=== PATIENT | female | born 1990 | race Caucasian/White ===

== ENCOUNTER → 2017-01-09 | Outpatient (CLI) | payer SELFPAY ==
--- NOTE | 2017-01-09 11:57 | US ---
EXAMINATION TYPE: US OB <=14 wks transvag DATE OF EXAM: 01/09/2017 COMPARISON: NONE CLINICAL HISTORY: O46.91 Antepartum hemorrhage first trimester. EXAM PERFORMED: Transvaginal (TV) and Transabdominal (TA), endovaginal scanning performed for better evaluation of the . Grayscale, color Doppler imaging performed of the ovaries EXAM MEASUREMENTS: GESTATIONAL AGE / DATING Physician Established: Not established yet Dates by LMP: Unknown Dates by First Scan: (5 weeks/6 days) at dr office EDC: not given Dates by Current Scan for: (5 weeks/6 days) EDC: 09/05/2017 MATERNAL ANATOMY Uterus: 7.8 x 3.9 x 4.8 cm Right Ovary: 2.0 x 1.5 x 1.7 cm Left Ovary: 2.0 x 2.0 x 2.5 cm Post CDS / Adnexa: rt ov cyst 1.4 x 0.8 x 1.1 cm Presence of free fluid: no Presence of corpus luteal cyst: rt ov cyst 1.4 x 0.8 x 1.1 cm Presence of subchorionic bleed: no GESTATION / SURVEY CRL: 0.3 (5 weeks/4 days) MSD: 0.8 ( weeks/ days) Yolk Sac (normal less than 6mm): 0.3 Heart Rate: not seen bpm Rhythm: not seen IUP: within uterus ho heart beat seen Date of LMP: unknown Beta HcG (if available): NA IMPRESSION: Findings may represent early gestation, heart rate was not detected although pole was noted. Co nsider short interval follow-up.
== END | disposition home or self-care (01) ==
LOC: RADUSWWP 11:07
PROVIDERS: ATTEND Obstetrics & Gynecology
DX: O46.91 Antepartum hemorrhage, unspecified, first trimester (principal); Z3A.00 Weeks of gestation of pregnancy not specified
CPT/HCPCS: 76801; 76817

== ENCOUNTER 2018-09-30 00:07 | Outpatient (CLI) | payer BC ==
[2018-09-30 00:40] VITALS: BP 124/82; PULSE 87; RESP 16; TEMP 97.6
--- NOTE | 2018-10-04 10:30 | P.MSEPDOC ---
Presenting Problems - Arrival Data Date of Arrival on Unit: 09/30/18 Time of Arrival on Unit: 00:08 Mode of Transport: Ambulatory - Complaint OB-Reason for Admission/Chief Complaint: Possible Onset of Labor, Decreased Movement Comment: Patient has had decreased movement this evening, states that contractions started around 1730 this evening, states they are approximately 7 minutes apart. Medical History - Information : 3 Para: 1 Term: 1 : 0 Abortions: Spontaneous or Elective: 1 Number of Living Children: 2 - Gestational Age Gestational Age by BRANDI (wks/days): 39 Weeks and 0 Days Review of Systems - Review of Systems Constitutional: No problems Breast: No problems ENT: No problems Cardiovascular: No problems Respiratory: No problems Gastrointestinal: No problems Genitourinary: No problems Musculoskeletal: No problems Neurological: No problems Skin: No problems Vital Signs - Temperature Temperature: 97.6 F Temperature Source: Axillary - Pulse Pulse Oximetery Pulse Rate: 87 Pulse Assessment Method: Automatic Cuff - Respirations Respiratory Rate: 16 Oxygen Delivery Method: Room Air - Blood Pressure Sitting Blood Pressure: 124/82 Blood Pressure Mean: 96 Blood Pressure Source: Automatic Cuff Medical Screen Scoring (Pre) - Cervical Exam Dilation: 1-3 cm = 1 Membranes: Intact - Uterine Contractions Frequency: > or = 36 weeks =2 Duration: > 40 seconds = 2 Intensity: N/A - Maternal Vital Signs Maternal Temperature: N/A Maternal Blood Pressure: N/A Signs of Preeclampsia: N/A Maternal Respirations: N/A - Pain Assessment Pain Location and Character: Generalized, Abdomen Pain Scale Used: Numeric (1 - 10) Pain Intensity: 4 Pain Management Goal: 4 - Maternal Trauma Maternal Trauma: N/A - Assessment Baseline FHR: 140 Heart Rate - NICHD Category: Category I (Normal) = 0 NST: Reactive Position: N/A Station: N/A - Total Score Total Score (Pre): 5 - Level of Risk Level of Risk: Low (0-5) Physician Notification (Pre) - Physician Notified Physician Notified Date: 09/30/18 Physician Notified Time: 01:24 Physician/Practitioner Notifed:: Dr. Hoff New Order Received: Yes - Notification Comment Comment: Orders given to monitor patient for another hour and recheck cervix, if cervical change is made at that time call physician with report, if cervix remains unchanged at that time orders given to discharge patient home with instructions. Disposition - Disposition OB Disposition: Discharge to home, Written follow up instructions reviewed Discharge Date: 09/30/18 Discharge Time: 02:23 I agree with the RN Medical Screening Exam: Yes Risk & Benefit of care provided described in d/c instruction: Yes Diagnosis: DECREASED MOVEMENTS, THIRD TRIMESTER, FETUS 1
== END 2018-09-30 02:23 | disposition home or self-care (01) ==
LOC: FBPOP 00:07
PROVIDERS: ATTEND Obstetrics & Gynecology
DX: O36.8131 Decreased fetal movements, third trimester, fetus 1 (principal); Z3A.39 39 weeks gestation of pregnancy
CPT/HCPCS: 59025; 99213

== ENCOUNTER 2018-09-30 04:49 | Inpatient (IN) | payer BC ==
[2018-09-30] MEDS ORDERED: BUTORPHANOL 1 MG/ML 1 ML VIAL IV PRN (05:17)
[2018-09-30] MEDS ORDERED: TERBUTALINE 1 MG/ML VIAL SQ PRN (05:30)
[2018-09-30] MEDS ORDERED: CARBOPROST TROMETHAMINE 250 MCG/ML 1 ML AMP IM PRN (05:30)
[2018-09-30] MEDS ORDERED: OXYTOCIN 10 UNIT/ML 1 ML VIAL IM PRN (05:30)
[2018-09-30] MEDS ORDERED: LIDOCAINE 0.5% (PF) 5 MG/ML (50 ML SDV) SQ PRN (05:30)
[2018-09-30] MEDS ORDERED: METHYLERGONOVINE 0.2 MG/ML 1 ML AMP IM PRN (05:30)
[2018-09-30 06:05] VITALS: BMI 34.5
[2018-09-30] MEDS: LACTATED RINGERS 1,000 ML IV SCH ×4 (06:08→23:20)
[2018-09-30 06:25] LABS: Basophils % (A) 0 %; Eosinophils # (A) 0.2 k/uL (0-0.7); Eosinophils % (A) 1 %; HCT 34.6 % (34.0-46.0); HGB 11.4 gm/dL (11.4-16.0); Lymphocytes # (A) 1.5 k/uL (1.0-4.8); Lymphocytes % (A) 11 %; MCHC 32.9 g/dL (31.0-37.0); Mean Platelet Volume 7.4; Monocytes # (A) 0.8 k/uL (0-1.0); Monocytes % (A) 6 %; Neutrophils # (A) 11.5 k/uL (1.3-7.7); Neutrophils % (A) 81 %; Platelet Count 242 k/uL (150-450); RBC 3.93 m/uL (3.80-5.40); RDW 14.7 % (11.5-15.5); WBC 14.2 k/uL (3.8-10.6)
--- NOTE | 2018-09-30 11:44 | P.HPOB ---
History of Present Illness H&P Date: 09/30/18 Chief Complaint: 39-0/7 weeks, labor The patient is a 27-year-old 3 para 1011 admitted at 39-0/7 weeks as established by last menstrual period and confirmed by second trimester ultrasound. She is admitted in early labor having made cervical change in triage over the course of 2 separate visits and with regular contractions. Her has been uncomplicated. She is Rh- and received RhoGAM at 28 weeks. Group B strep status is negative. She carries a history of a previous shoulder dystocia and has a scheduled induction for later this week. Third trimester ultrasound during this demonstrated growth at the 96th percentile leading to the previously mentioned plan. Obstetrical history: 3 para 1011 with 1 term vaginal delivery that did present with shoulder dystocia at 41 weeks. She additionally had an early miscarriage not requiring D&C. Current statistics are listed in history of present illness. EDC of 10/07/2018 was established by last menstrual period and confirmed by second trimester ultrasound. Laboratory workup demonstrates a blood type of B- with a negative antibody screen. Rubella status is immune. Early Glucola was within normal limits while second trimester Glucola was elevated but followed by a normal three-hour glucose tolerance test. Group B strep status is negative. Crisis Intervention Specialist history: Unremarkable with no history of any infections to include STDs. Review of Systems Review of systems is confined to history of present illness. Past Medical History Past Medical History: No Reported History History of Any Multi-Drug Resistant Organisms: None Reported Additional Past Surgical History / Comment(s): [place] tooth extraction Past Anesthesia/Blood Transfusion Reactions: No Reported Reaction Past Psychological History: Anxiety, Depression Smoking Status: Never smoker Past Alcohol Use History: None Reported Past Drug Use History: None Reported - Past Family History Mother Family Medical History: No Reported History Medications and Allergies Home Medications Medication Instructions Recorded Confirmed Type Ferrous Sulfate [Iron] 325 mg PO DAILY 09/30/18 09/30/18 History No.77/Iron Asp Gly/FA 1 each PO DAILY 09/30/18 09/30/18 History [Prenate Star Tablet] Allergies Allergy/AdvReac Type Severity Reaction Status Date / Time No Known Allergies Allergy Verified 09/30/18 05:01 Exam Vital Signs Temp Pulse Resp BP 09/30/18 06:01 98.4 F 99 16 117/70 09/30/18 05:17 98.4 F 99 16 117/70 Intake and Output 09/29/18 09/30/18 09/30/18 22:59 06:59 14:59 Other: # Voids 1 Weight 85.729 kg In general, this is a well-developed, well-nourished white female in no acute distress. Her heart has a regular rhythm and rate without murmur. Her lungs are clear to auscultation bilaterally in all stallings. Her abdomen is gravid, nondistended, has normal active bowel sounds, is soft, nontender, and without any palpable masses aside from uterine fundus. Her extremities are without any cyanosis, clubbing, or significant edema and are nontender to palpation bilaterally. Digital cervical examination on straights her cervix to be 4+ centimeters dilated, 60% effaced, the vertex in presentation at -2 station. Artificial rupture of membranes is carried out demonstrating clear fluid. Results Result Diagrams: 09/30/18 06:10 Abnormal Lab Results - Last 24 Hours (Table) 09/30/18 Range/Units 06:10 WBC 14.2 H (3.8-10.6) k/uL Neutrophils # 11.5 H (1.3-7.7) k/uL Assessment and Plan (1) Active labor at term Current Visit: Yes Status: Acute Code(s): [id number] - SNOMED Code(s): 00079211 Plan: The patient is admitted for active management of labor. She has undergone artificial rupture of membranes and will continue to have close maternal and surveillance along with expectant management. She is in the process of myrick ving an epidural catheter placed at this time.
[2018-09-30] MEDS ORDERED: fentaNYL (PF) 50 MCG/ML 5 ML AMP ONE (11:45)
[2018-09-30] MEDS ORDERED: ROPIVACAINE 5MG/ML 20ML VIAL ONE (11:45)
[2018-09-30] MEDS ORDERED: SODIUM CHLORIDE 0.9% 100 ML BAG ONE (11:45)
[2018-09-30] MEDS ORDERED: ePHEDrine SULFATE/0.9% NACL/PF 50 MG/5 ML SYRINGE IV ONE ×2 (11:45→21:14)
[2018-09-30] MEDS ORDERED: OXYTOCIN 30 UNITS/500 ML NS 30 UNIT in SALINE 1 500ML.BAG IV SCH (14:30)
[2018-09-30] MEDS ORDERED: PENICILLIN G POTASSIUM 5,000,000 UNIT in DEXTROSE 5% IN WATER 100 ML IVPB STA ×2 (18:39)
[2018-09-30] MEDS ORDERED: CITRIC ACID-SODIUM CITRATE 15 ML CUP PO ONE (19:41)
[2018-09-30] MEDS ORDERED: ceFAZolin IN SWFI 2 GM/20 ML SYRINGE IVP ONE (19:41)
[2018-09-30] MEDS ORDERED: ONDANSETRON 4 MG/2 ML VIAL ONE (21:14)
[2018-09-30] MEDS ORDERED: OXYTOCIN 10 UNIT/ML 1 ML VIAL ONE (21:14)
[2018-09-30] MEDS ORDERED: NALBUPHINE 10 MG/ML (1 ML AMP) ONE (21:14)
[2018-09-30] MEDS ORDERED: MORPHINE SULFATE (PF) 0.3 MG/0.3 ML SYR ONE (21:14)
[2018-09-30] MEDS ORDERED: KETOROLAC 30 MG/ML 1 ML VIAL ONE (21:14)
[2018-09-30] MEDS ORDERED: PHENYLEPHRINE-0.9% NACL SYG 1 MG/10 ML SYRINGE ONE (21:14)
[2018-09-30] MEDS ORDERED: DEXAMETHASONE SOD PHOS (MDV) 100 MG/10 ML VIAL ONE (21:14)
[2018-09-30] MEDS ORDERED: HYDROcodone/APAP 7.5-325MG 1 EACH TAB PO PRN (22:09)
[2018-09-30] MEDS ORDERED: NALOXONE 0.4 MG/ML 1 ML VIAL IV PRN (22:09)
[2018-09-30] MEDS ORDERED: ZOLPIDEM 5 MG TAB PO PRN (22:09)
[2018-09-30] MEDS ORDERED: METOCLOPRAMIDE 5 MG/ML 2 ML VIAL IVP PRN (22:09)
[2018-09-30] MEDS ORDERED: diphenhydrAMINE 50 MG CAP PO PRN (22:09)
[2018-09-30] MEDS ORDERED: SIMETHICONE 80 MG CHEWABLE PO PRN (22:09)
[2018-09-30] MEDS ORDERED: diphenhydrAMINE 50 MG/ML 1 ML VIAL IVP PRN ×2 (22:09)
[2018-09-30] MEDS ORDERED: ACETAMINOPHEN TAB 325 MG TAB PO PRN (22:09)
[2018-09-30] MEDS ORDERED: ONDANSETRON 4 MG/2 ML VIAL IVP PRN (22:09)
[2018-09-30] MEDS ORDERED: LANOLIN CREAM 5 GM TUBE TOPICAL PRN (22:09)
[2018-09-30] MEDS ORDERED: diphenhydrAMINE 25 MG CAP PO PRN (22:09)
[2018-09-30] MEDS ORDERED: OXYTOCIN 20 UNITS/1000 ML NS 1,000 ML IV SCH (22:15)
--- NOTE | 2018-09-30 22:19 | P.OP ---
Date of Procedure: 09/30/18 Preoperative Diagnosis: #1. 39-0/7 weeks #2. Suspected macrosomia #3. Arrest of dilation and descent #4. Maternal intrapartum fever #5. Suspected malposition Postoperative Diagnosis: Same plus #6. Left occiput transverse position Procedure(s) Performed: #1. Primary low-transverse section Anesthesia: spinal Surgeon: Edison Hoff Safety Patrol Officer #1: Sheridan Carrasco Estimated Blood Loss (ml): 500 IV fluids (ml): 1,200 Urine output (ml): 400 Pathology: none sent Condition: stable Disposition: floor Operative Findings: Preoperatively, the patient had made very slow progress from initial presentation at 4 cm to approximately 6-7 cm with the head not well applied to the cervix. She remained at that dilation for approximately 4-5 hours and had an elevating baseline which prompted antibiotic prophylaxis after which time she then spiked a fever greater than 101. She began to have subtle late decelerations along with the tachycardia. Given the remotene ss from delivery as well as the suspected macrosomia and malposition, the decision was made to proceed with primary low-transverse section. She was taken to the operating room where she was delivered of a viable 9 lbs. 2 oz. baby girl with Apgars of 8 at 1 minute and 9 at 5 minutes delivered in the left occiput transverse position. The placenta was delivered manually, intact, and grossly normal with a grossly normal three-vessel cord. The uterus, tubes, and ovaries were entirely normal to inspection. Description of Procedure: The patient was prepped and draped in usual fashion after spinal anesthesia was administered by the anesthesiologist. A Pfannenstiel incision was made and extended into the abdominal cavity without difficulty. The bladder peritoneum was noted to be fairly high and was elevated, incised, and reflected distally. A 2 cm incision was made in the transverse plane of the lower uterine segment to enter the uterus at which time clear fluid was further noted. Incision was extended in both directions using the bandage scissors. The head was delivered up and through the incision in the left occiput transverse position. The nose and mouth were thoroughly suctioned and the remainder of the delivered onto the field where the cord was doubly clamped, cut, and the passed resuscitative measures with weight and Apgars as noted above. cord blood was collected as the patient is Rh-. A segment of cord was doubly clamped, cut, and set aside should cord gases become necessary. The placenta was delivered manually and intact as noted above. The uterus was exteriorized and the interior cavity of the uterus was swept of any remaining placental or membranous fragments. The margins of the incision were grasped with Viera clamps and the incision was closed in 2 layers. The first layer was a running locking stitch of 0 chromic catgut from margin to margin followed by a running imbricating layer of 0 chromic catgut from margin to margin. The posterior cul-de-sac was suctioned with a guard as well as a laparotomy sponge and the uterine and ovarian findings were entirely normal as noted above. The uterus was replaced within the abdominal cavity and the gutters swept of any remaining blood, fluid, or clot. The incision was reexamined and several points of bleeding were noted across the incision, each made hemostatic with a [id number] stitch of 0 chromic catgut. Any small points of bleeding were made hemostatic with the Bovie. Once hemostasis was assured, the parietal lissette toneum was loosely reapproximated and layer of muscles examined and found to be hemostatic. The fascia was closed with 2 running stitches of 0 Vicryl proceeding from the lateral margins to the midpoint. The subcutaneous tissues were irrigated, made hemostatic with the Bovie, and reapproximated with a running stitch of 30 plain catgut. The skin was reapproximated with a running subcuticular stitch of 4-0 Vicryl from margin to margin followed by half-inch Steri-Strips placed with Mastisol. Estimated blood loss for the case was approximately 500 mL. There were no complications. All sponge, instrument, and needle counts were correct. Both mother and are resting comfortably in recovery.
[2018-10-01] MEDS: KETOROLAC 30 MG/ML 1 ML VIAL IVP PRN ×3 (03:53→18:09)
[2018-10-01] MEDS: LACTATED RINGERS 1,000 ML IV SCH ×2 (06:19→19:36)
--- NOTE | 2018-10-01 06:38 | P.PN ---
Progress Note - Text Progress Note Date: 10/01/18 post duramorph spinal rounds patient POD 1 s/p denies any headaches or LE weakness vitals within normal limits spinal without complication primary team to manage
[2018-10-01 06:46] LABS: Basophils % (A) 0 %; Eosinophils # (A) 0.1 k/uL (0-0.7); Eosinophils % (A) 0 %; HCT 31.5 % (34.0-46.0); HGB 10.1 gm/dL (11.4-16.0); Hypochromasia Slight; Lymphocytes % (A) 5 %; MCH 28.9 pg (25.0-35.0); MCHC 32.2 g/dL (31.0-37.0); MCV 89.7 fL (80.0-100.0); Mean Platelet Volume 7.8; Monocytes # (A) 0.6 k/uL (0-1.0); Monocytes % (A) 3 %; Neutrophils # (A) 19.9 k/uL (1.3-7.7); Neutrophils % (A) 92 %; Platelet Count 259 k/uL (150-450); RBC 3.51 m/uL (3.80-5.40); RDW 14.5 % (11.5-15.5); WBC 21.7 k/uL (3.8-10.6)
[2018-10-01] MEDS: SENNOSIDES-DOCUSATE SODIUM 1 EACH TAB PO SCH ×2 (08:00→19:36)
[2018-10-01] MEDS: HYDROcodone/APAP 5-325MG 1 EACH TAB PO PRN ×2 (08:06→18:16)
--- NOTE | 2018-10-01 10:06 | P.PN ---
Subjective Progress Note Date: 10/01/18 Principal diagnosis: Postoperative day #1 Slept well. Tired. Positive flatus. Objective - Vital Signs Vital signs: Vital Signs Temp 97.6 F 10/01/18 08:00 Pulse 78 10/01/18 08:00 Resp 15 10/01/18 08:00 BP 108/66 10/01/18 08:00 Pulse Ox 98 10/01/18 08:00 Intake & Output 09/30/18 10/01/18 10/01/18 18:59 06:59 18:59 Intake Total 1000 Output Total 600 2600 Balance -600 -1600 Intake: Intake, IV Titration 1000 Amount Oxytocin 20 Units/1000 ml 1000 Ns 1,000 ml @ Per Protocol IV .Q0M MIGDALIA Rx#: [id number] Output: Urine 600 2600 Uretheral ([place]) 500 - Constitutional General appearance: Present: average body habitus, cooperative - EENT Eyes: Present: PERRLA ENT: Present: hearing grossly normal - Neck Neck: Present: normal ROM Thyroid: bilateral: normal size - Respiratory Respiratory: bilateral: CTA - Cardiovascular Rhythm: regular - Gastrointestinal General gastrointestinal: Present: normal bowel sounds - Integumentary Integumentary Comment(s): Incision clean and dry, intact, Steri-Strips applied. Well approximated. Fundus firm, midline, symmetric, 18 week size. Integumentary: Present: normal - Neurologic Neurologic: Present: CNII-XII intact - Musculoskeletal Musculoskeletal: Present: gait normal, strength equal bilaterally - Psychiatric Psychiatric: Present: A&O x's 3, appropriate affect, intact judgment & insight - Labs CBC & Chem 7: 10/01/18 06:22 Labs: Abnormal Lab Results - Last 24 Hours (Table) 10/01/18 Range/Units 06:22 WBC 21.7 H (3.8-10.6) k/uL RBC 3.51 L (3.80-5.40) m/uL Hgb 10.1 L (11.4-16.0) gm/dL Hct 31.5 L (34.0-46.0) % Neutrophils # 19.9 H (1.3-7.7) k/uL Assessment and Plan Assessment: Doing well postoperative day #1 Plan: Continue postoperative care. Advanced diet and activity. Made discontinue IV. Probable discharge home tomorrow. Time with Patient: Less than 30
[2018-10-01] MEDS ORDERED: Rhogam IMMUNE GLOBULIN 1,500 UNIT/1 ML IM ONE (18:04)
[2018-10-01] MEDS: IBUPROFEN 600 MG TAB PO PRN (21:08)
[2018-10-02] MEDS: HYDROcodone/APAP 5-325MG 1 EACH TAB PO PRN ×2 (00:01→08:00)
[2018-10-02] MEDS: IBUPROFEN 600 MG TAB PO PRN ×2 (03:05→10:22)
--- NOTE | 2018-10-02 07:25 | P.DS ---
Providers Date of admission: 09/30/18 05:14 Expected date of discharge: 10/02/18 Attending physician: Juliette Stark Primary care physician: Stated None Hospital Course: This is a 27-year-old white female 3 para 1011 EDC 10/07/2018 at 39 weeks gestation. Patient presented in early spontaneous labor. Her was essentially unremarkable, group B strep cultures negative, rubella status immune, blood type B negative. Please see dictated history and physical for details. Artificial amniorrhexis revealed clear fluid. Epidural was placed per her request. Patient had arrest of dilatation and descent, and then issues with heart tones with category 3 tracing. The decision to proceed with section was made. She underwent a low-transverse section and gave to a liveborn female with scores of 8 and 9 at one and 5 minutes respectively. weighed 9 lbs. 2 oz. or 4130 g. Estimated blood loss 500 mL's. Please see dictated delivery note for details. This morning the patient is doing well. She is voiding, ambulating and passing flatus without difficulty. Vital signs are stable and she is afebrile. Incision is clean and dry, Steri-Strips applied, fundus is firm and in the midline, symmetric and 18 week size. Extremities are negative for edema. Breasts are not engorged. Breast-feeding is going well. Patient is judged to be in very good condition for discharge home. She is reminded no intercourse, tampons or douching. She will use Advil or Aleve [id number] as needed for pain. She will follow-up in the office with me in 2 weeks. No heavy lifting, no driving for 2 weeks. Continue taking vitamin daily. Infant will follow-up with director of emergency nursing as recommended. Patient Condition at Discharge: Good Plan - Discharge Summary Discharge Rx Participant: No New Discharge Prescriptions: No Action No.77/Iron Asp Gly/FA [Prenate Star Tablet] 1 each PO DAILY Ferrous Sulfate [Iron] 325 mg PO DAILY Discharge Medication List Ferrous Sulfate [Iron] 325 mg PO DAILY 09/30/18 [History] No.77/Iron Asp Gly/FA [Prenate Star Tablet] 1 each PO DAILY 09/30/18 [History] Follow up Appointment(s)/Referral(s): Juliette Stark MD [STAFF PHYSICIAN] - 2 Weeks
[2018-10-02] MEDS: SENNOSIDES-DOCUSATE SODIUM 1 EACH TAB PO SCH (08:01)
[2018-10-02 10:03] VITALS: BP 111/71; PULSE 81; RESP 16; TEMP 97.5
== END 2018-10-02 12:10 | disposition home or self-care (01) | DRG 787 ==
LOC: FBPOP 04:49 → 4FBP 05:14
PROVIDERS: ADMIT Obstetrics & Gynecology; ATTEND Obstetrics & Gynecology
PROC: 10907ZC Drainage of Amniotic Fluid, Therapeutic from Products of Conception, Via Natural or Artificial Opening (ICD-10-PCS; 2018-09-30)
PROC: 00HU33Z Insertion of Infusion Device into Spinal Canal, Percutaneous Approach (ICD-10-PCS; 2018-09-30)
PROC: 3E0R3NZ Introduction of Analgesics, Hypnotics, Sedatives into Spinal Canal, Percutaneous Approach (ICD-10-PCS; 2018-09-30)
PROC: 10D00Z1 Extraction of Products of Conception, Low, Open Approach (ICD-10-PCS; principal; 2018-09-30 21:29)
DX: O62.1 Secondary uterine inertia (principal); O75.2 Pyrexia during labor, not elsewhere classified; O76 Abnormality in fetal heart rate and rhythm complicating labor and delivery; O64.0XX0 Obstructed labor due to incomplete rotation of fetal head, not applicable or unspecified; O36.63X0 Maternal care for excessive fetal growth, third trimester, not applicable or unspecified; Z3A.39 39 weeks gestation of pregnancy; Z37.0 Single live birth
CPT/HCPCS: 59025; 85025; 85461; 86850; 86900; 86901; 99213

== ENCOUNTER 2018-10-03 18:28 | Emergency (ER) | payer BC ==
[2018-10-03 19:45] VITALS: BP 132/90; PULSE 71; RESP 20; TEMP 98.5
[2018-10-03] MEDS ORDERED: METOCLOPRAMIDE 10 MG TAB PO STA (20:50)
--- NOTE | 2018-10-03 20:52 | ED ---
Headache HPI - General Chief Complaint: Headache Stated Complaint: poss spinal headache Time Seen by Provider: 10/03/18 20:11 Mode of arrival: ambulatory Limitations: no limitations - History of Present Illness Initial Comments: 27-year-old female patient who is status post 09/30/2018 presents to the emergency department today for evaluation of intermittent headache. Patient states she has been having headaches since having epidural and spinal during delivery. Patient states that she did have a severe headache last night that prevented her from sleeping. States that the pain is at the base of her skull. She is rating it a 9 out of 10. States the pain did improve with lying flat. States she has been taking Tylenol Motrin but is not keeping the headache under control. States that she did discuss this with her TEAM MANAGER who recommended she come to the emergency department for further evaluation and possible blood patch. She denies any blurred vision, double vision, nausea, vomiting, dizziness, or weakness with this. Denies any numbness or tingling to her extremities. Denies any fever or chills. States her abdominal incision is healing well and reports no concerns with this. She is breast-feeding. She does not currently have a headache. Patient denies any recent rash, shortness breath, chest pain, abdominal pain, diarrhea, constipation, back pain, hematuria, dysuria, urinary urgency, urinary frequency, or any other complaints. - Related Data Home Medications Medication Instructions Recorded Confirmed Ferrous Sulfate [Iron] 325 mg PO DAILY 09/30/18 10/03/18 No.77/Iron Asp Gly/FA 1 each PO DAILY 09/30/18 10/03/18 [Prenate Star Tablet] Acetaminophen Tab [Tylenol] 500 mg PO Q4-6H 10/03/18 10/03/18 Ibuprofen [Motrin] 600 mg PO Q4-6H PRN 10/03/18 10/03/18 Previous Rx's Medication Instructions Recorded Metoclopramide [Reglan] 10 mg PO Q8H PRN #10 tab 10/03/18 Allergies Allergy/AdvReac Type Severity Reaction Status Date / Time No Known Allergies Allergy Verified 10/03/18 20:41 Review of Systems ROS Statement: Those systems with pertinent positive or pertinent negative responses have been documented in the HPI. ROS Other: All systems not noted in ROS Statement are negative. Past Medical History Past Medical History: No Reported History History of Any Multi-Drug Resistant Organisms: None Reported Past Surgical History: Section Additional Past Surgical History / Comment(s): [place] tooth extraction Past Anesthesia/Blood Transfusion Reactions: No Reported Reaction Past Psychological History: Anxiety, Depression Smoking Status: Never smoker Past Alcohol Use History: Rare Past Drug Use History: None Reported - Past Family History Mother Family Medical History: No Reported History General Exam Limitations: no limitations General appearance: alert, in no apparent distress, other (This is a well- developed, well-nourished adult female patient in no acute distress. Vital signs upon presentation are temperature 98.5F, pulse 71, respirations 20, blood pressure 132/90, pulse ox 98% on room air.) Eye exam: Present: normal appearance, PERRL, EOMI. Absent: scleral icterus, conjunctival injection, nystagmus, periorbital swelling ENT exam: Present: normal exam, normal oropharynx, mucous membranes moist Neck exam: Present: normal inspection, full ROM. Absent: tenderness, meningismus, lymphadenopathy Respiratory exam: Present: normal lung sounds bilaterally. Absent: respiratory distress, wheezes, rales, rhonchi, stridor Cardiovascular Exam: Present: regular rate, normal rhythm, normal heart sounds. Absent: systolic murmur, diastolic murmur, rubs, gallop, clicks GI/Abdominal exam: Present: soft, normal bowel sounds. Absent: distended, tenderness, guarding, rebound, rigid Neurological exam: Present: alert, oriented X3, CN II-XII intact, other (Strength in all 4 extremities is 5/5.) Psychiatric exam: Present: normal affect, normal mood Skin exam: Present: warm, dry, intact, normal color. Absent: rash Course Vital Signs 10/03/18 19:41 Temperature 98.5 F Pulse Rate 71 Respiratory 20 Rate Blood Pressure 132/90 O2 Sat by Pulse 98 Oximetry Medical Decision Making - Medical Decision Making 27-year-old female patient presented to the emergency department today for evaluation of intermittent headache since undergoing delivery on 09/30/2018. Patient states she did have an epidural and a spinal during the delivery. States she has been having intermittent headaches since. Patient denies any current headache. States the headache comes on it is severe and located at the base of her skull. Patient states she has been taking Tylenol Motrin which has helped the pain but does not relieve the headaches. Vision did discuss this with her TEAM MANAGER who recommended she come here for further evaluation and possible blood patch. I did perform physical examination which was unremarkable. She is neurologically intact with no focal deficits. Again she is denying any current pain or headache. We did discuss the blood patch procedure and discuss it is not recommended as she is currently pain-free. We did discuss further methods of pain management at home including Tylenol, Motrin, Benadryl, Reglan, and fluids. She is instructed to follow-up with her TEAM MANAGER for recheck as soon as possible. Return parameters were discussed in detail. She verbalizes understanding and agrees with this plan. I did discuss the case with my attending Dr. Urena who is in agreement with these instructions and plan. Disposition Clinical Impression: Headache Disposition: HOME SELF-CARE Condition: Good Instructions (If sedation given, give patient instructions): Acute Headache (ED) Additional Instructions: If your headache returns take reglan (metoclopramide), benadryl 25-50mg, ibuprofen 600mg, and acetaminophen 650-1000mg at once. Drink two large glasses of water. Rest. If this does not work, return to the emergency department for further evaluation. Follow up with your TEAM MANAGER and her primary care physician for recheck as soon as possible. Return to the emergency department immediately for any new, worsening, or concerning symptoms. Prescriptions: Metoclopramide [Reglan] 10 mg PO Q8H PRN #10 tab PRN Reason: Vomiting Is patient prescribed a controlled substance at d/c from ED?: No Referrals: Delvis Caceres MD [Primary Care Provider] - 1-2 days Nitin Keller DO [Doctor of Osteopathic Medicine] - 1-2 days Time of Disposition: 20:52
== END 2018-10-03 21:02 | disposition home or self-care (01) ==
LOC: EC 18:28
DX: R51 Headache (principal)
CPT/HCPCS: 99283

== ENCOUNTER 2018-10-05 12:49 | Emergency (ER) | payer BC ==
[2018-10-05] MEDS ORDERED: KETOROLAC 30 MG/ML 1 ML VIAL IVP STA (13:09)
[2018-10-05] MEDS ORDERED: SODIUM CHLORIDE 0.9% 1,000 ML IV STA (13:09)
[2018-10-05] MEDS ORDERED: diphenhydrAMINE 50 MG/ML 1 ML VIAL IVP STA (13:09)
[2018-10-05] MEDS ORDERED: METOCLOPRAMIDE 5 MG/ML 2 ML VIAL IVP STA (13:09)
--- NOTE | 2018-10-05 13:14 | ED ---
Headache HPI - General Chief Complaint: Headache Stated Complaint: spinal headache Time Seen by Provider: 10/05/18 12:56 Source: RN notes reviewed, old records reviewed Mode of arrival: ambulatory Limitations: no limitations - History of Present Illness Initial Comments: This is a 27-year-old male the ER for evaluation. Presents today for evaluation regarding headache. Severe headache. Patient states recent diagnosis of spinal headache. Patient delivered her baby 5 days ago she had a but eversion was scheduled for comparison had a epidural, she has since had a headache. Positional headache worse when she stands up. She was in ER 2 days ago and it did improve and she went home. Patient returns today for recurrent headache. Mild nausea no vomiting no fevers. No abdominal pain. No significant bleeding no lightheadedness dizziness or feelings of syncope. MD Complaint: headache (Post LP) -: days(s) (5) Onset Description: gradual Location: frontal, temporal Severity: moderate Severity scale (1-10): 7 Quality: throbbing, pulsatile, full, constant Consistency: constant Improves With: rest, other Worsens With: sitting/standing Context: recent spinal/epidural procedure Associated Symptoms: nausea Treatments Prior to Arrival: none - Related Data Home Medications Medication Instructions Recorded Confirmed Ferrous Sulfate [Iron] 325 mg PO DAILY 09/30/18 10/05/18 No.77/Iron Asp Gly/FA 1 tab PO DAILY 09/30/18 10/05/18 [Prenate Star Tablet] Acetaminophen Tab [Tylenol] 500 mg PO Q4-6H PRN 10/03/18 10/05/18 Ibuprofen [Motrin Ib] 600 mg PO Q6H PRN 10/05/18 10/05/18 diphenhydrAMINE [Benadryl] 25 - 50 mg PO DAILY PRN 10/05/18 10/05/18 Previous Rx's Medication Instructions Recorded Metoclopramide [Reglan] 10 mg PO Q8H PRN #10 tab 10/03/18 Allergies Allergy/AdvReac Type Severity Reaction Status Date / Time No Known Allergies Allergy Verified 10/05/18 13:24 Review of Systems ROS Statement: Those systems with pertinent positive or pertinent negative responses have been documented in the HPI. ROS Other: All systems not noted in ROS Statement are negative. Past Medical History Past Medical History: No Reported History History of Any Multi-Drug Resistant Organisms: None Reported Past Surgical History: Section Additional Past Surgical History / Comment(s): [place] tooth extraction Past Anesthesia/Blood Transfusion Reactions: No Reported Reaction Past Psychological History: Anxiety, Depression Smoking Status: Never smoker Past Alcohol Use History: Rare Past Drug Use History: None Reported - Past Family History Mother Family Medical History: No Reported History General Exam Limitations: no limitations General appearance: alert, in no apparent distress Head exam: Present: atraumatic, normocephalic, normal inspection Eye exam: Present: normal appearance, PERRL, EOMI. Absent: scleral icterus, conjunctival injection, periorbital swelling ENT exam: Present: normal exam, mucous membranes moist Neck exam: Present: normal inspection. Absent: tenderness, meningismus, lymphadenopathy Respiratory exam: Present: normal lung sounds bilaterally. Absent: respiratory distress, wheezes, rales, rhonchi, stridor Cardiovascular Exam: Present: regular rate, normal rhythm, normal heart sounds. Absent: systolic murmur, diastolic murmur, rubs, gallop, clicks GI/Abdominal exam: Present: soft, normal bowel sounds. Absent: distended, tenderness, guarding, rebound, rigid Extremities exam: Present: normal inspection, full ROM, normal capillary refill. Absent: tenderness, pedal edema, joint swelling, calf tenderness Back exam: Present: normal inspection Neurological exam: Present: alert, oriented X3, CN II-XII intact Psychiatric exam: Present: normal affect, normal mood Skin exam: Present: warm, dry, intact, normal color. Absent: rash Course Vital Signs 10/05/18 10/05/18 12:52 14:42 Temperature 97.4 F L 98.4 F Pulse Rate 75 56 L Respiratory 18 16 Rate Blood Pressure 128/82 119/83 O2 Sat by Pulse 100 98 Oximetry - Reevaluation(s) Reevaluation #1: 10/05/18 16:27 Medical record and prior ER visit and inpatient hospitalization. is reviewed Reevaluation #2: 10/05/18 16:27 Patient's headache is improved although still not resolved Reevaluation #3: 10/05/18 16:27 Spoke with anesthesia to see patient in ED, Dr Costa did perform blood patch without complication Medical Decision Making - Medical Decision Making Plan I female the ER for evaluation. Patient has post-LP headache spinal headache, patient received blood patch here in the er w mild pain medication. Patient can be discharged - Lab Data Lab Results 10/05/18 Range/Units 13:28 Urine Color Colorless Urine Appearance Clear (Clear) Urine pH 7.5 (5.0-8.0) Ur Specific [place] 1.004 (1.001-1.035) Urine Protein Negative (Negative) Urine Glucose (UA) Negative (Negative) Urine Ketones Negative (Negative) Urine Blood Moderate H (Negative) Urine Nitrite Negative (Negative) Urine Bilirubin Negative (Negative) Urine Urobilinogen <2.0 (<2.0) mg/dL Ur Leukocyte Esterase Large H (Negative) Urine RBC 2 (0-5) /hpf Urine WBC 29 H (0-5) /hpf Ur Squamous Epith Cells 2 (0-4) /hpf Urine Bacteria Rare H (None) /hpf Urine Mucus Rare H (None) /hpf Disposition Clinical Impression: Headache, Spinal headache Disposition: HOME SELF-CARE Condition: Good Instructions (If sedation given, give patient instructions): Acute Headache (ED) Is patient prescribed a controlled substance at d/c from ED?: No Referrals: Delvis Caceres MD [Primary Care Provider] - 1-2 days
[2018-10-05 13:59] LABS: Appearance,Urine Clear (Clear); Bacteria,Urine Rare /hpf; Bilirubin,Urine Negative (Negative); Blood,Urine Moderate (Negative); Color,Urine Colorless; Glucose,Urine (UA) Negative (Negative); Ketones,Urine Negative (Negative); Leukocyte Esterase,Urine Large (Negative); Mucus,Urine Rare /hpf; Nitrite,Urine Negative (Negative); PH, Urine 7.5 (5.0-8.0); Protein,Urine Negative (Negative); RBC,Urine 2 /hpf (0-5); Specific Gravity,Urine 1.004 (1.001-1.035); Squamous Epithelial Cell,Urine 2 /hpf (0-4); Urobilinogen,Urine <2.0 mg/dL (<2.0); WBC,Urine 29 /hpf (0-5)
[2018-10-05 14:44] VITALS: TEMP 98.4
[2018-10-05 16:54] VITALS: PULSE 66
--- NOTE | 2018-10-05 17:09 | P.PCN ---
Date of Procedure: 10/05/18 Preoperative Diagnosis: Post dural puncture headache Postoperative Diagnosis: same Procedure(s) Performed: Epidural blood patch Anesthesia: local Surgeon: Kaleigh Costa Description of Procedure: Consult was placed to anesthesia service secondary post dural puncture headache. Patient is postop day 7 from a section. She had an epidural placed as well as a spinal which was placed for her . She presented to the ER today for second time secondary to her headache. She has tried conservative therapy has failed. She reports a headache which is consistent with a postdural puncture headache. She reports adequate sitting up or standing up. She has photophobia and phonophobia. She reports she is not able take care of her child secondary to the pain. Patient was seen in the emergency department and I discussed with her the risks benefits and alternatives to the procedure. I discussed the risk of infection, bleeding, as well as a worsening of the spinal headache. I advised her that the risks are unlikely but nonetheless present a potential problem. Patient both agreed to go forward with the procedure as they have failed conservative therapy. Patient was seated at the side of the bed. Low back was prepped with iodine 3. Right before meals was prepped to withdraw blood sterilely. I was assisted by the RN in the emergency department who was able to access the right Anticubital veins under sterile conditions and draw 20 mL of blood. The L2-L3 level which has been prepped was anesthetized with 5 mL of 1% lidocaine. An 18-gauge epidural toughy needle was advanced into the L2-L3 interspace using a [id number] technique. After epidural space was located, I slowly injected the patient's blood under sterile conditions into the epidural space. I injected a total of 15 mL of blood. Patient was doing well and reported that her headache improved significantly immediately after. Patient was laid down flat in the emergency department. She'll be monitored for 30-45 minutes by the emergency room physician. I advised her to give us a call if her headache does not get better or if she experiences any fevers, chills, lower extremity weakness, bowel or bladder incontinence.
[2018-10-05 17:25] VITALS: BP 138/90; RESP 16
== END 2018-10-05 17:26 | disposition home or self-care (01) ==
LOC: EC 12:49
DX: G97.1 Other reaction to spinal and lumbar puncture (principal); Z79.899 Other long term (current) drug therapy; Z98.890 Other specified postprocedural states
CPT/HCPCS: 99284; 62273; 96365; 96375 ×3; 96361; 81001; 87086; J1200; J2765; J0696; J1885

== ENCOUNTER → 2020-01-20 | Outpatient (CLI) | payer BC | END | disposition home or self-care (01) | LOC: LABWHC1 09:53 | PROVIDERS: ATTEND Family Medicine | DX: Z20.828 Contact with and (suspected) exposure to other viral communicable diseases (principal) | CPT/HCPCS: U0003; C9803 ==